=== PATIENT | female | born 1970 | race Caucasian/White ===

== ENCOUNTER 2016-08-07 09:09 | Emergency (ER) | payer OTHER ==
[~2016-08-07] VITALS: Ht 160 cm; Wt 98.5 kg
[~2016-08-07 09:09] MED LIST: AMOXICILLIN500 M1 PO; AMOXICILLIN500 MG PO; AUGMENTIN875 MG PO; BENTYL20 MG PO; DICYCLOMINE HCL20 MG PO; DOLOPHINE HCL10 MG PO; EXCEDRIN MIGRA1 EAC3 PO; EXCEDRIN MIGRA1 EACH PO; FLAGYL500 MG PO; FLEET ENEMA-AD118 ML PR; METHADOSE10 MG/1 ML PO; MIRALAX17 GM PO; MOTRIN800 MG PO; PREDNISONE50 MG PO; PROMETHAZINE HC25 M1 PO; REGLAN5 MG PO; ROBITUSSIN100 MG/5 M PO; TYLENOL REGULA325 MG PO; TYLENOL WITH C1 EACH PO; VENTOLIN HFA18 GM IH; ZITHROMAX Z-PA250 MG PO; ZITHROMAX250 MG PO; ZOFRAN ODT4 MG PO; ZOFRAN4 MG PO
[2016-08-07] MEDS ORDERED: ZYRTEC10 M2 PO (10:41)
[2016-08-07] MEDS ORDERED: FLONASE16 G1 BOTH NARES (10:41)
[2016-08-07] MEDS ORDERED: MUCUS ER600 MG PO (10:41)
[2016-08-07] MEDS ORDERED: TESSALON200 MG PO (10:41)
[2016-08-07] MEDS ORDERED: PROAIR HFA8.5 GM IH (10:41)
[2016-08-07 10:55] VITALS: BP 137/98
== END 2016-08-07 10:55 | disposition home or self-care (01) ==
LOC: EME 09:09
DX: J20.8 Acute bronchitis due to other specified organisms (principal); J30.2 Other seasonal allergic rhinitis; F17.200 Nicotine dependence, unspecified, uncomplicated; Z88.1 Allergy status to other antibiotic agents; Z88.2 Allergy status to sulfonamides; Z88.6 Allergy status to analgesic agent; Z91.041 Radiographic dye allergy status; Z88.5 Allergy status to narcotic agent; J45.909 Unspecified asthma, uncomplicated
CPT/HCPCS: 94640; 99281; 99284